=== PATIENT | female | born 1995 | race Caucasian/White ===

== ENCOUNTER 2017-04-27 21:59 | Emergency (ER) | payer BC ==
[2017-04-27 22:39] VITALS: RESP 16
[2017-04-27 23:37] LABS: PLATELET COUNT 196 10^3/uL (150-400)
--- NOTE | 2017-04-28 00:11 | EDPHY ---
H & P Stated Complaint: SENT FOR PLACEMENT FROM [facility] ON M-1 HOLD Source: Patient Exam Limitations: No limitations - Personal History Current Tetanus/Diphtheria Vaccine: Yes Current Tetanus Diphtheria and Acellular Pertussis (TDAP): Yes - Medical/Surgical History Hx Asthma: No Hx Chronic Respiratory Disease: No Hx Diabetes: No Hx Cardiac Disease: No Hx Renal Disease: No Hx Cirrhosis: No Hx Alcoholism: No Hx HIV/AIDS: No Hx Splenectomy or Spleen Trauma: No Other PMH: ADD, ANOREXIA, ANEMIA - Social History Smoking Status: Current every day smoker Time Seen by Provider: 04/27/17 23:35 HPI/ROS: HPI The patient presents for medical clearance, placed on an M1 hold earlier today by [facility] the crisis [facility] for suicidal ideation and auditory hallucinations with manic behavior. The patient states she has a history of attention deficit hyperactivity disorder, she is not currently on any medications for this. She reports for the last 3 days after quitting smoking marijuana she has had racing thoughts, insomnia, has been lying in bed and thinking about her life. She has been scratching her left hand because this grounds her. REVIEW OF SYSTEMS Constitutional: No fever, no chills. Eyes: No discharge. ENT: No sore throat. Cardiovascular: No chest pain, no palpitations. Respiratory: No cough, no shortness of breath. Gastrointestinal: No abdominal pain, no vomiting. Genitourinary: No hematuria. Musculoskeletal: No back pain. Skin: No rashes. Neurological: No headache. PMHx: Attention deficit hyperactivity disorder, anemia, status post T and A Soc Hx: Daily marijuana use, stopped 3 days ago, occasional tobacco use PHYSICAL General Appearance: Alert, no distress Eyes: Pupils equal and round no pallor or injection ENT, Mouth: Mucous membranes moist Respiratory: There are no retractions, lungs are clear to auscultation Cardiovascular: Regular rate and rhythm Gastrointestinal: Abdomen is soft and non-tender, no masses, bowel sounds normal Neurological: A&O, moves all extremities Skin: Warm and dry, no rashes Musculoskeletal: Neck is supple non tender Extremities: symmetrical, full range of motion Psychiatric: Patient is oriented X 3, she is tangential, she has pressured speech (Riguzzi,Carline) Constitutional: Initial Vital Signs Temperature (C) 37.2 C 04/27/17 22:00 Heart Rate 95 04/27/17 22:00 Respiratory Rate 16 04/27/17 22:00 Blood Pressure 116/65 04/27/17 22:00 O2 Sat (%) 98 04/27/17 22:00 O2 Delivery Mode Room Air Allergies/Adverse Reactions: No Known Allergies Allergy (Unverified 04/27/17 22:39) Home Medications: Medication Instructions Recorded NK [No Known Home Meds] 04/27/17 Medical Decision Making Differential Diagnosis: 21-year-old female with history of attention deficit hyperactivity disorder here with her mother after being placed on M1 hold at [facility] earlier today for suicidal ideation and auditory hallucinations with justo. I agree with maintaining the hold. She has a history of anemia. Labs were checked and did reveal that she was positive for marijuana. Otherwise labs are unremarkable. She is medically clear and will await placement. 7:00 a.m.- The patient became somewhat agitated overnight and received Geodon and Zyprexa. She was then able to sleep. She is currently awaiting placement and is still on an M1 hold. The case is signed out to Dr. Baer at change of shift. ( Carline Bradley) Other Provider: [id number]: Patient accepted for transfer to CTU by Dr. Garcia. (Jonel Baer) - Data Points Laboratory Results: Laboratory Results 04/27/17 22:20 04/27/17 22:20 04/27/17 04/27/17 04/27/17 22:20 22:20 22:20 WBC RBC Hgb Hct MCV MCH MCHC RDW Plt Count MPV Neut % (Auto) Lymph % (Auto) [place] % (Auto) Eos % (Auto) Baso % (Auto) Nucleat RBC Rel Count Absolute Neuts (auto) Absolute Lymphs (auto) Absolute Monos (auto) Absolute Eos (auto) Absolute Basos (auto) Absolute Nucleated RBC Immature Gran % Immature Gran # Sodium 143 mEq/L mEq/L (135-145) Potassium 3.9 mEq/L mEq/L (3.5-5.2) Chloride 102 mEq/L mEq/L (97-110) Carbon Dioxide 22 mEq/l mEq/l (22-31) Anion Gap 19 mEq/L H mEq/L (8-16) BUN 13 mg/dL mg/dL (7-23) Creatinine 0.6 mg/dL mg/dL (0.6-1.0) Estimated GFR > 60 Glucose 93 mg/dL mg/dL (70-100) Calcium 10.6 mg/dL H mg/dL (8.5-10.4) Urine Test NEGATIVE Urine Opiates Screen NEGATIVE (NEGATIVE) Urine Barbiturates NEGATIVE (NEGATIVE) Ur Phencyclidine Scrn NEGATIVE (NEGATIVE) Ur Amphetamine Screen NEGATIVE (NEGATIVE) U Benzodiazepines Scrn NEGATIVE (NEGATIVE) Urine Cocaine Screen NEGATIVE (NEGATIVE) U Marijuana (THC) Screen NON-NEGATIVE H (NEGATIVE) Ethyl Alcohol < 10 mg/dL mg/dL (0-10) 04/27/17 22:20 WBC 16.14 10^3/uL H 10^3/uL (3.80-9.50) RBC 5.01 10^6/uL 10^6/uL (4.18-5.33) Hgb 14.3 g/dL g/dL (12.6-16.3) Hct 43.0 % % (38.0-47.0) MCV 85.8 fL fL (81.5-99.8) MCH 28.5 pg pg (27.9-34.1) MCHC 33.3 g/dL g/dL (32.4-36.7) RDW 13.6 % % (11.5-15.2) Plt Count 196 10^3/uL 10^3/uL (150-400) MPV 12.6 fL H fL (8.7-11.7) Neut % (Auto) 73.0 % % (39.3-74.2) Lymph % (Auto) 17.6 % % (15.0-45.0) [place] % (Auto) 8.4 % % (4.5-13.0) Eos % (Auto) 0.2 % L % (0.6-7.6) Baso % (Auto) 0.4 % % (0.3-1.7) Nucleat RBC Rel Count 0.0 % % (0.0-0.2) Absolute Neuts (auto) 11.79 10^3/uL H 10^3/uL (1.70-6.50) Absolute Lymphs (auto) 2.84 10^3/uL 10^3/uL (1.00-3.00) Absolute Monos (auto) 1.35 10^3/uL H 10^3/uL (0.30-0.80) Absolute Eos (auto) 0.03 10^3/uL 10^3/uL (0.03-0.40) Absolute Basos (auto) 0.07 10^3/uL 10^3/uL (0.02-0.10) Absolute Nucleated RBC 0.00 10^3/uL 10^3/uL (0-0.01) Immature Gran % 0.4 % % (0.0-1.1) Immature Gran # 0.06 10^3/uL 10^3/uL (0.00-0.10) Sodium Potassium Chloride Carbon Dioxide Anion Gap BUN Creatinine Estimated GFR Glucose Calcium Urine Test Urine Opiates Screen Urine Barbiturates Ur Phencyclidine Scrn Ur Amphetamine Screen U Benzodiazepines Scrn Urine Cocaine Screen U Marijuana (THC) Screen Ethyl Alcohol Medications Given: Discontinued Medications Olanzapine (Zyprexa Zydis) 10 mg PO EDNOW ONE Stop: 04/28/17 04:35 Last Admin: 04/28/17 04:35 Dose: 10 mg Ziprasidone (Geodon) 10 mg IM Q2HRS ONE Stop: 04/28/17 02:37 Last Admin: 04/28/17 02:50 Dose: 10 mg Departure - Departure Disposition: Other Psych, Not [facility] Clinical Impression: Suicidal ideation, Acute psychosis Condition: Fair Referrals: Patient,NotPresent [Unknown] - As per Instructions
[2017-04-28] MEDS ORDERED: ZIPRASIDONE MESYLATE 20 MG VIAL IM ONE (02:36)
[2017-04-28] MEDS ORDERED: OLANZapine DISINTEGR 10 MG TAB ONE (04:32)
[2017-04-28] MEDS ORDERED: OLANZapine DISINTEGR 10 MG TAB PO ONE (04:34)
[2017-04-28 07:40] VITALS: BP 117/65; PULSE 85; TEMP 97.5; O2SAT 95
== END 2017-04-28 10:47 ==
LOC: EEVIPCON 21:59
DX: R45.851 Suicidal ideations (principal); F23 Brief psychotic disorder; F17.200 Nicotine dependence, unspecified, uncomplicated
CPT/HCPCS: 80305; G0480; J3486